=== PATIENT | male | born 1975 | race Caucasian/White ===

== ENCOUNTER 2016-08-08 08:29 | Emergency (ER) | payer BC ==
[2016-08-08 08:51] VITALS: BP 134/76
--- NOTE | 2016-08-08 10:01 | UC ---
Throat Pain/Nasal Raul HPI - HPI Summary HPI Summary: 40 yo male with mild sore throat x 1 day no f/c no myalgias or bernard - History of Current Complaint Chief Complaint: UCGeneralIllness Stated Complaint: SORE THROAT Time Seen by Provider: 08/08/16 10:00 Hx Obtained From: Patient Onset/Duration: Gradual Onset, Lasting Hours Severity: Mild Pain Intensity: 1 Pain Scale Used: 0-10 Numeric Cough: None - Epiglottits Risk Factors Epiglottis Risk Factors: Negative - Allergies/Home Medications Allergies/Adverse Reactions: Allergies Allergy/AdvReac Type Severity Reaction Status Date / Time No Known Allergies Allergy Verified 08/08/16 08:46 Home Medications: Home Medications Citalopram TAB* [CeleXA TAB*] 10 mg PO DAILY 08/08/16 [History Confirmed ] PMH/Surg Hx/FS Hx/Imm Hx Previously Healthy: Yes Endocrine History Of: Denies: Diabetes Cardiovascular History Of: Denies: Cardiac Disorders Respiratory History Of: Denies: Asthma - Surgical History Surgical History: None - Family History Known Family History: Positive: Hypertension, Diabetes - Social History Alcohol Use: None Substance Use Type: None Smoking Status (MU): Light Every Day Tobacco Smoker Type: Smokeless Tobacco Amount Used/How Often: 1/2 can a day Length of Time of Smoking/Using Tobacco: 26 Years Have You Smoked in the Last Year: No - Immunization History Most Recent Influenza Vaccination: Not the Season Review of Systems Constitutional: Negative Skin: Negative Eyes: Negative ENT: Sore Throat Respiratory: Negative Cardiovascular: Negative Gastrointestinal: Negative Genitourinary: Negative Motor: Negative Neurovascular: Negative Musculoskeletal: Negative Neurological: Negative Psychological: Negative All Other Systems Reviewed And Are Negative: Yes Physical Exam Triage Information Reviewed: Yes Appearance: Well-Appearing, No Pain Distress, Well-Nourished Vital Signs: Initial Vital Signs Temp 98.2 F 08/08/16 08:45 Pulse 66 08/08/16 08:45 Resp 16 08/08/16 08:45 BP 134/76 08/08/16 08:45 Pulse Ox 100 08/08/16 08:45 Vital Signs Reviewed: Yes Eyes: Positive: Conjunctiva Clear ENT: Negative: Hearing grossly normal, Pharynx normal, Nasal congestion, TMs normal, Tonsillar swelling, Tonsillar exudate, Trismus, Muffled/hoarse voice Neck: Positive: Supple, Nontender Respiratory: Positive: Chest non-tender, Lungs clear, Normal breath sounds Cardiovascular: Positive: RRR Bowel Sounds: Positive: Present Musculoskeletal: Positive: ROM Intact, No Edema Neurological: Positive: Alert Psychological Exam: Normal Skin Exam: Normal Throat Pain/Nasal Course/Dx - Course Course Of Treatment: RS(-) - Differential Dx/Diagnosis Provider Diagnoses: pharyngitis Discharge - Discharge Plan Condition: Stable Disposition: HOME Patient Education Materials: Pharyngitis (ED) Referrals: Arlyn Mccarthy MD [Primary Care Provider] - 5 Days (if not better) Additional Instructions: warm salt water gargles tylenol or advil for pain
== END 2016-08-08 10:17 | disposition home or self-care (01) ==
LOC: UCCORT 08:29
DX: J02.9 Acute pharyngitis, unspecified (principal); F17.220 Nicotine dependence, chewing tobacco, uncomplicated
CPT/HCPCS: 87651; 99211; G0463

== ENCOUNTER 2017-08-26 17:49 | Emergency (ER) | payer BC ==
[2017-08-26 18:28] VITALS: BP 133/83
--- NOTE | 2017-08-26 18:42 | UC ---
Throat Pain/Nasal Raul HPI - HPI Summary HPI Summary: sore throat x 1 week no fever, no chills, no runny nose, + dry cough - History of Current Complaint Chief Complaint: UCGeneralIllness Stated Complaint: SORE THROAT Time Seen by Provider: 08/26/17 18:29 Hx Obtained From: Patient Onset/Duration: Gradual Onset, Lasting Days - 7, Still Present Severity: Moderate Pain Intensity: 3 Cough: Nonproductive Associated Signs & Symptoms: Negative: Dysphagia, FB Sensation, Drooling, Wheezing, Hoarseness, Sinus Discomfort, Nasal Discharge, Fever, Vomiting, Rash - Allergies/Home Medications Allergies/Adverse Reactions: Allergies Allergy/AdvReac Type Severity Reaction Status Date / Time No Known Allergies Allergy Verified 08/26/17 18:25 Home Medications: Home Medications Omeprazole CAP* [Prilosec CAP* 20 MG] 20 mg PO DAILY 08/26/17 [History Confirmed 08/26/17] PMH/Surg Hx/FS Hx/Imm Hx Psychological History: Anxiety - Surgical History Surgical History: None - Family History Known Family History: Positive: Hypertension, Diabetes - Social History Alcohol Use: None Substance Use Type: None Smoking Status (MU): Light Every Day Tobacco Smoker Type: Smokeless Tobacco Amount Used/How Often: 1/2 can a day Length of Time of Smoking/Using Tobacco: 26 Years Have You Smoked in the Last Year: No - Immunization History Most Recent Influenza Vaccination: Not the 2015/2016 Season Review of Systems Constitutional: Negative Skin: Negative Eyes: Negative ENT: Sore Throat Respiratory: Cough Cardiovascular: Negative Gastrointestinal: Negative Genitourinary: Negative Is Patient Immunocompromised?: No All Other Systems Reviewed And Are Negative: Yes Physical Exam Triage Information Reviewed: Yes Appearance: Well-Appearing, No Pain Distress, Well-Nourished Vital Signs: Initial Vital Signs Temp 98.7 F 08/26/17 18:23 Pulse 70 08/26/17 18:23 Resp 16 08/26/17 18:23 BP 133/83 08/26/17 18:23 Pulse Ox 96 08/26/17 18:23 Vital Signs Reviewed: Yes Eye Exam: Normal Eyes: Positive: Conjunctiva Clear ENT: Positive: Normal ENT inspection, Hearing grossly normal, Pharyngeal erythema, TMs normal. Negative: Nasal congestion, Nasal drainage Neck: Positive: Supple, Nontender, No Lymphadenopathy Respiratory: Positive: Chest non-tender, Lungs clear, Normal breath sounds Cardiovascular: Positive: RRR, No Murmur, Pulses Normal Musculoskeletal Exam: Normal Skin Exam: Normal Throat Pain/Nasal Course/Dx - Differential Dx/Diagnosis Provider Diagnoses: pharyngitis Discharge - Discharge Plan Condition: Stable Disposition: HOME Patient Education Materials: Pharyngitis (ED) Referrals: No Primary Care Phys,NOPCP [Primary Care Provider] - If Needed
== END 2017-08-26 18:51 | disposition home or self-care (01) ==
LOC: UCCORT 17:49
DX: J02.9 Acute pharyngitis, unspecified (principal); Z87.891 Personal history of nicotine dependence
CPT/HCPCS: 87651; 99211; G0463

== ENCOUNTER 2018-10-27 07:19 | Emergency (ER) | payer SELFPAY ==
[2018-10-27 07:35] VITALS: BP 132/88
[2018-10-27] MEDS ORDERED: Albuterol/Ipratropium NEB.SOL* Albuterol 2.5 MG/Ipratropium 0.5 MG 3 ML INH ONE (07:57)
--- NOTE | 2018-10-27 08:01 | UC ---
Throat Pain/Nasal Raul HPI - HPI Summary HPI Summary: Patient presents to urgent care reporting feeling congested, sore throat, since last Saturday. Patient states he's had some body aches. No documented fevers. Patient states since Saturday fell on his chest. Patient with coarse cough productive of thick yellow sputum. Patient states has wheezes and feels short of breath with walking related to wheezing and cough. Patient states he does have some discomfort on his right lower lung area. No nausea or vomiting. No rash. Patient's taken several [id number] medications but hasn't improved. Patient does not have a history of lung disease. Patient has not gone to work since last week related to his symptoms. Patient's does not smoke cigarettes. Patient's medications reviewed this visit. - History of Current Complaint Chief Complaint: UCRespiratory Stated Complaint: SORE THROAT,CHEST CONGESTION Time Seen by Provider: 10/27/18 07:51 Hx Obtained From: Patient Onset/Duration: Gradual Onset Severity: Mild Pain Intensity: 2 Pain Scale Used: 0-10 Numeric - Allergies/Home Medications Allergies/Adverse Reactions: Allergies Allergy/AdvReac Type Severity Reaction Status Date / Time No Known Allergies Allergy Verified 10/27/18 07:29 Home Medications: Home Medications Ibuprofen TAB* [Advil TAB*] 600 mg PO Q6H PRN 10/27/18 [History Confirmed ] PMH/Surg Hx/FS Hx/Imm Hx Previously Healthy: Yes - Surgical History Surgical History: None - Family History Known Family History: Positive: Hypertension, Diabetes, Non-Contributory - Social History Occupation: Employed Full-time - mechanic's assistant Lives: With Family Alcohol Use: None Substance Use Type: None Smoking Status (MU): Light Every Day Tobacco Smoker Type: Smokeless Tobacco Amount Used/How Often: 1/2 can a day Length of Time of Smoking/Using Tobacco: 26 Years Have You Smoked in the Last Year: No - Immunization History Most Recent Influenza Vaccination: Not the 2016/2016 Season Review of Systems All Other Systems Reviewed And Are Negative: Yes Constitutional: Positive: Fatigue Skin: Positive: Negative Eyes: Positive: Negative ENT: Positive: Sore Throat, Nasal Discharge, Sinus Congestion Respiratory: Positive: Shortness Of Breath, Cough, Other - wheeze Cardiovascular: Positive: Negative Gastrointestinal: Positive: Negative Genitourinary: Positive: Negative Neurological: Positive: Negative Is Patient Immunocompromised?: No Physical Exam - Summary Physical Exam Summary: Vital Signs Reviewed: Yes A+Ox3, no distress Eyes: Conjunctiva Clear, RODOLFO. EOM intact and full ENT: Hearing grossly normal TM x 2 clear, turbinates congested mmoist, uvula midline, no exudate, no erythema Neck: Positive: Supple Respiratory: Positive: No respiratory distress, No accessory muscle use course cough, Cardiovascular: RRR nl s1, s2 no m/r CBT <2 sec abd soft + BS nt/nd no guarding, no distension Musculoskeletal Exam: GONZALEZ x 4 without difficulty Strength Intact, ROM Intact Neurological: Positive: Alert, + sensation throughout Psychological: Positive: Normal Response To Family Skin: Positive: no rash, no ecchymosis Triage Information Reviewed: Yes Vital Signs: Initial Vital Signs Temp 97.4 F 10/27/18 07:30 Pulse 69 10/27/18 07:30 Resp 18 10/27/18 07:30 BP 132/88 10/27/18 07:30 Pulse Ox 100 10/27/18 07:30 Diagnostics - Radiology No standard instances Radiology Interpretation Completed By: Radiologist - Patient Name: IZABELA FRANCO Medical Record#: [id number] Ordering Physician: Luly Herring MD Acct.#: [id number] : 1975 Age: 42 Sex: M Location: [facility] Exam Date: 10/27/18756 ADM Status: REG ER Order Information: CHEST PA & LAT 2 VWS Accession Number: [id number] CPT: 44755 INDICATION: Cough and wheeze x1 week COMPARISON: None TECHNIQUE: PA and lateral views of the chest were obtained. FINDINGS: The heart and mediastinum are normal in size and contour. The lungs are grossly clear. There is no evidence of large pleural effusion. Visualized bones are normal for the patient's age. There is no radiographic evidence of free air beneath the diaphragm IMPRESSION: No radiographic evidence of acute cardiopulmonary disease. <Electronically signed by Andreas Gramajo MD in OV> 10/27/18819 Dictated By: Andreas Gramajo MD Dictated Date/Time: 10/27/18819 Transcribed Date/ Time: 10/27/18819 Copy to: CC:Amanda Villela MD; Luly Herring MD Imaging - [facility] Imaging - [facility] Imaging - [facility] [id number] [place], [place] [id number] [place] [id number] [place] [address] ph ([phone]) ph ([phone]) ph ([phone]) This report is only to be considered final once signed by the Provider (s) as displayed in the "<Electronically Signed by >" field (s). Absence of a signature indicates the report is in a draft status and still needs to be finalized. In the event this document was created by someone other than the signing Provider, the individual initiating the document will be listed in the "Entered by:" or "Dictated by:" key. 1 of 1 Re-Evaluation - Re-Evaluation First Eval Re-Evaluation Time: 08:34 Change: Improved Comment: Pt states feels better still some discomfort right posterior lung, but improved. sob markedly improved. wheezing improved. CXR no infiltrate. reviewed secretion precautions. humidified air. abx. MDI. work note. strict return precautions Throat Pain/Nasal Course/Dx - Course Course Of Treatment: Pt presents with body aches, congestion since Sat. Now settled in right lung with cough and wheeze. Pt states gets SOB with coughing trialed several OTC med. Pt concerned developed PNA VSS Pt with coarse cough and wheezing right lung rhonchi will check cxr, duo d/w pt regarding flu swab- won't alter treatment - pt requesting test - does have contact with elderly close reassessment - Differential Dx/Diagnosis Provider Diagnosis: Acute bronchitis Discharge - Sign-Out/Discharge Documenting (check all that apply): Patient Departure All imaging exams completed and their final reports reviewed: Yes - Discharge Plan Condition: Stable Disposition: HOME Prescriptions: Albuterol HFA INHALER* [Ventolin HFA Inhaler*] 2 puff INH Q4H PRN #1 mdi PRN Reason: wheeze Amoxicillin PO (*) [Amoxicillin 875 MG (*)] 875 mg PO BID #20 tab Inhaler, Assist Devices [Aerochamber Mv] 1 each PO Q4HR #1 spacer Patient Education Materials: Acute Bronchitis (ED) Forms: *Gen. Provider Communication, *Work Release Referrals: Amanda Villela MD [Primary Care Provider] - Additional Instructions: -Take antibiotics exactly as prescribed until gone -Use your albuterol puffer - 2 puffs every 4 hours for the next 2 days - then as needed -Stay well hydrated - avoid excess caffeine and all alcohol - eat regular, healthy meals - - humidify the air in the room where you sleep - boil water, run a hot steam shower, vaporizer, cups of water by heat register - okay to take over the counter decongestant and cough medication -- These infections are spread by secretions - do NOT share eating or drinking utensils - clean items you share with other people such as cell phones, computer mouse, TV remote, computer tablets,etc.. Once you have been antibiotics for 2 days, change your toothbrush and your pillowcase. -Contact your doctor to arrange a follow-up appointment this week. If you develop increased shortness of breath, uncontrolled fevers, chest pain or other concerns, it is recommended you go to the emergency department for further evaluation. Call your doctor, return here or go to the emergency department with any questions or concerns - Billing Disposition and Condition Condition: STABLE Disposition: Home
[2018-10-27 08:15] LABS: Influenza A Molecular NEGATIVE (Negative); Influenza B Molecular NEGATIVE (Negative)
== END 2018-10-27 08:39 | disposition home or self-care (01) ==
LOC: UCCORT 07:19
DX: J20.9 Acute bronchitis, unspecified (principal); R52 Pain, unspecified; F17.290 Nicotine dependence, other tobacco product, uncomplicated
CPT/HCPCS: 71046; 99212; A9270-GY; G0463